=== PATIENT | male | born 2005 | race Caucasian/White ===

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

== ENCOUNTER 2024-12-06 11:52 | Inpatient (IN) | payer MEDICAID, SELFPAY ==
--- NOTE | ~2024-12-06 | XR_ITS ---
EXAMINATION: XR ELBOW 3 VIEWS RIGHT HISTORY: pain/swelling COMPARISON: There are no prior studies available for comparison. FINDINGS: Three views of the right elbow are submitted. Osseous mineralization is normal. There is no fracture or dislocation. The joint spaces are preserved. There is soft tissue swelling. XR/XR elbow RT min 3V IMPRESSION: Soft tissue swelling. No osseous abnormality is identified. Electronically signed by: Renard Nix MD 12/06/2024 01:30 PM EDT
--- NOTE | ~2024-12-06 | US_ITS ---
EXAMINATION: US EXTREMITY, NONVASCULAR CLINICAL INFORMATION: Pain and redness in bicipital region right upper extremity, rule out biceps tendon rupture or tear. COMPARISON: None available. TECHNIQUE: Grayscale and color Doppler ultrasound imaging of the right bicep region was performed in the region of soft tissue redness and swelling. FINDINGS: The bicipital tendon, either normal or abnormal, could not be visualized by the technologist. In the region of the distal biceps, there is subcutaneous soft tissue edema. No mass, abnormal lymph nodes, or organized fluid collection identified. US/US Extremity Nonvas Limited RT IMPRESSION: 1. The bicipital tendon, either normal or abnormal, could not be visualized. 2. Subcutaneous edema in the region of swelling over the right bicep. No mass, abnormal lymph nodes, or organized fluid collection identified. 3. If there is concern for bicipital rupture, MRI recommended. Electronically signed by: Leonel Knapp MD 12/06/2024 03:48 PM EDT
[2024-12-06 12:23] VITALS: BP 127/76; PULSE 73; RESP 18; TEMP 36.7; O2SAT 99; BMI 24.2
--- NOTE | 2024-12-06 12:23 | ED_ITS ---
HPI - Extremity Injury (Upper) General Chief Complaint: Extremity Injury, Upper Stated Complaint: R Arm- Pain, Redness, Can't Bend Time Seen by Provider: 12/06/24 13:57 Source: patient and family (mother) Mode of arrival: ambulatory Limitations: no limitations History of Present Illness ED Provider: Paula Bridges PA-C HPI narrative: 19 y.o male with no past medical pain presents to the ED with a chief complaint of redness and pain along the flexor surface of the right forearm and bicep area. The patient reports that he went to the gym for the first time yesterday and did many arm exercises. He denies any pop or trauma to the arm at the gym or after. Last night he saw some redness near his lower anterior biceps area, then it was much larger this morning when he woke up. He reports pain and inability to flex and extend his arm. Patient reports taking tylenol with minimal help. Denies contact with new clothing, bedding, or any lotions and topical washes. Denies being outside or having any insect or animal bite recently. Denies fever, chills, or night sweats. Denies headache, vision changes, ear or mouth changes. Denies chest pain, dizziness, shortness of breath, abdominal pain, or lower extremity and left arm pain. MD complaint: injury to: right (flexor surface ), elbow and forearm Onset (ago): hour(s) Other injuries: none Place: other (gym) Severity: moderate Relieving factors: rest Exacerbating factors: movement of extremity Context: other (first day at gym with arm exercises) Associated symptoms: denies other symptoms Treatments prior to arrival: other (tylenol) Related Data Home Medications ?Medication ?Instructions ?Recorded ?Confirmed albuterol sulfate 90 mcg/actuation 2 - 4 puff inhalation Q4H PRN 12/06/24 12/06/24 aerosol inhaler (Ventolin HFA) Shortness Of Breath Or Wheezing cetirizine 10 mg tablet (Zyrtec) 10 mg PO DAILY PRN Allergy Symptoms 12/06/24 12/06/24 epinephrine 0.3 mg/0.3 mL 0.3 ml IM DIRECTED PRN Allergic 12/06/24 12/06/24 injection, auto-injector Reaction Allergies Allergy/AdvReac Type Severity Reaction Status Date / Time seafood Allergy Intermediate Hives Verified 12/06/24 12:31 carrot Allergy Unknown Verified 12/07/24 12:44 green michaels Allergy Unknown Verified 12/07/24 12:45 SEAFOOD Allergy Unknown HIVES Uncoded 09/18/24 14:47 Review of Systems 2 Review of Systems: Yes all other systems are reviewed and are negative [facility] Past Medical History Medical History Mild intermittent asthma Social History Social History Household Members: Family Housing: Apartment Do you presently have visiting nurse or other home services: No Patient Tobacco Use Status: Never used Tobacco Smoked in Last 30 Days: No Use of substances other than those prescribed or required for medical reasons: No Currently Displaying Signs/Symptoms of Drug Intoxication Withdrawal: No Have you been hit, kicked, punched, or otherwise hurt by someone within the past year? If so, by whom?: No Do you feel safe in your current relationship?: No Current Relationship Is there a partner from a previous relationship who is making you feel unsafe now?: No Are you made to feel afraid or neglected: No Advance Directives: No Advance Directives Information Provided: Yes Do you have a plan to hurt others: No Plan Nutrition Risks: No Nutritional Risk Physical Exam 2 Vital Signs: Vital Signs: Last Vital Signs Temp 98.1 F 12/07/24 07:52 Pulse 65 12/07/24 07:52 Resp 16 12/07/24 07:52 BP 121/58 L 12/07/24 07:52 Pulse Ox 97 12/07/24 07:52 O2 Del Method Room Air 12/07/24 07:52 BMI result Body Mass Index 24.2 Appearance: Alert. Oriented X3. No acute distress. Head: normocephalic, atraumatic. Eyes: Pupils equal, round and reactive to light. ENT: Pharynx normal. No tonsillar swelling or exudate. Neck: Normal inspection. Neck supple. CVS: Normal heart rate and rhythm. Pulses normal. Respiratory: No respiratory distress. Breath sounds normal. Abdomen: Soft and nontender. +BS x4 Skin: Skin warm and dry. Normal skin color. Normal skin turgor. No rashes. Warmth and erythema along the right flexor surface- lower biceps and upper forearm region. Extremities: No lower extremity edema. No joint swelling. Swelling along the right flexor surface- lower biceps and upper forearm region. Neuro/psych: Oriented X 3. No motor deficit. No sensory deficit. CN II-XII intact. Normal speech and cognition. Extrem: Elbow/forearm/wrist images: 1. Erythema and swelling Right lower extremity: abnormal to inspection and ROM limited (inability to flex and extend right arm ) Course Course Course Narrative: This is a Rapid Medical Exam performed in triage by Crystal Freitas PA-C. Full HPI, ROS and PE to be performed by primary ED provider. 19 yo M presenting to the ED c/o RUE pain s/p doing bicep curls in the gym yesterday. PE: R elbow with erythema swelling & ttp to mid humerus. NV intact distally. limited full flexion & extension Plan: XR & US Medications Administered Generic Name Dose Route Start Last Admin Trade Name Freq PRN Reason Stop Dose Admin Doxycycline Hyclate 100 mg/ 250 mls @ 166.67 mls/hr 12/06/24 19:00 12/07/24 07:45 Sodium Chloride IV Infused Q12H SHAJI Infusion Lactated Ringer's 1,000 mls @ 200 mls/hr 12/06/24 18:45 12/07/24 12:42 Lr IVCONT 200 mls/hr .Q5H SHAJI Administration Sodium Chloride 3 ml 12/07/24 00:00 12/07/24 07:44 0.9 % Sodium Chloride Flush 3 Ml Syringe IVFLUSH 3 ml QSHIFT SHAJI Administration Discontinued Medications Generic Name Dose Route Start Last Admin Trade Name Freq PRN Reason Stop Dose Admin Ceftriaxone Sodium 1 gm 12/06/24 18:02 12/06/24 18:37 Ceftriaxone Sodium 1 Gm Vial IVPUSH 12/06/24 18:03 1 gm ONCE ONE Administration Lactated Ringer's 1,000 mls @ 999 mls/hr 12/06/24 15:00 12/06/24 16:18 Lr IV 12/06/24 16:00 Infused .Q1H1M SHAJI Infusion Lactated Ringer's 1,000 mls @ 999 mls/hr 12/06/24 16:00 12/06/24 17:34 Lr IV 12/06/24 17:00 Infused .Q1H1M SHAJI Infusion Lactated Ringer's 1,000 mls @ 999 mls/hr 12/06/24 18:15 12/06/24 20:24 Lr IV 12/06/24 19:15 Infused .Q1H1M SHAJI Infusion Medical Decision Making Medical Decision Making [facility] Narrative: 19 y.o male with no past medical pain presents to the ED with a chief complaint of redness and pain along the flexor surface of the right forearm and bicep area. Differential diagnosis included but is not limited to biceps tendon strain, biceps tendon rupture, cellulitis, rhabdomyolysis, lyme disease, and pyomyositis. On physical exam there was no ecchymosis visualized and the elbow x-ray read an impression of soft tissue swelling with no osseous abnormality identified - no avulsion fracture present which lessens the probability of a biceps tendon injury. Ultrasound was unable to visualize the bicipital tendon and showed subcutaneous edema in the swelling over the right bicep, with no masses, lymph node abnormalities, or organized fluid collections - along with no elevated WBC lowers suspicion for pyomyositis. Tick borne illness panel is pending, low suspicion and giving doxycycline for possible cellulitis anyway. The erythema and warmth along the flexor surface of the proximal bicep and distal forearm aid in the diagnosis of a cellulitis. AST and ALT are elevated at 55 and 42 along with the total CK levels of 2382, indicating an occurence of rhabdomyolysis. Patient was given 2L of LR and sent home with a 7 day course of doxycycline/keflex for empiric treatment of possible cellulitis. deeper infection less likely with reassuring U/S, no leukocytosis and unremarkabel CRP, ESR. 18:07 - CPK trended upward to 2451 despite 2L IVF. 3rd liter ordered along with empiric abx. no evidence of compartment syndrome on re-evaluation, pain and swelling are stable/the same per patient. hospitlaist TT for admission. patient and family updated on plan. Differential Diagnosis Differential Diagnoses: The differential diagnosis associated with the presentation includes Differential diagnosis included but is not limited to biceps tendon strain, biceps tendon rupture, cellulitis, rhabdomyolysis, pyomyositis, myositis, compartment syndrome Admission/Observation Consideration of admission/observation: Escalation of care including admission/observation considered Consult Healthcare Provider Management of the patient was discussed with: Hospitalist Lab Data [facility] Lab Attestation statement: I reviewed the patient's lab results. see above 12/07/24 06:38 12/07/24 06:38 Labs: Lab Results 12/06/24 12/06/24 12/06/24 Range/Units 14:28 16:20 17:39 WBC 10.3 (4.8-10.8) X10*3/uL RBC 5.60 (4.60-5.80) X10*6/uL Hgb 17.4 (14.0-18.0) g/dl Hct 49.0 (42.0-52.0) % MCV 87.5 (80.0-98.0) fL MCH 31.1 (27.0-33.0) pg MCHC 35.5 (31.0-36.0) g/dl RDW 13.3 (11.0-16.0) % Plt Count 247 (160-400) X10*3/uL MPV 8.3 L (9.4-12.4) fL Immature Gran % (Auto) 1.1 H (0.0-0.4) % Neut % (Auto) 64.9 (45-73) % Lymph % (Auto) 27.0 (20-40) % [place] % (Auto) 6.2 (2-11) % Eos % (Auto) 0.5 (0-4) % Baso % (Auto) 0.3 (0-2) % Lymph # (Auto) 2.8 (1.2-4.9) X10*3/uL [place] # (Auto) 0.6 (0.1-1.2) X10*3/uL Eos # (Auto) 0.1 (0.0-0.4) X10*3/uL Baso # (Auto) 0.0 (0.0-0.2) X10*3/uL Abs Immat Gran (auto) 0.11 H (0.00-0.03) X10*3/uL Absolute Neuts (auto) 6.7 (2.0-8.3) x10*3/uL Absolute Nucleated RBC 0.000 (0.0-0.012) X10*3/uL Nucleated RBC % (auto) 0.0 (0.0-0.2) /100WBC ESR 2 (0-15) MM/HR Sodium 140 (135-145) mmol/L Potassium 4.3 (3.3-5.1) mmol/L Chloride 104 (96-108) mmol/L Carbon Dioxide 31 H (22-29) mmol/L Anion Gap 9 L (12-20) BUN 14 (9-16) mg/dL Creatinine 0.64 (0.5-1.4) mg/dL Estim Creat Clear Calc 182.5 Estimated GFR > 60 Random Glucose 92 (60-115) mg/dL Calcium 9.2 (8.4-10.2) mg/dL Magnesium 2.0 (1.6-2.6) mg/dL Total Bilirubin 0.7 (0.0-1.0) mg/dL Direct Bilirubin 0.3 (0.0-0.5) mg/dL AST 55 H (5-37) U/L ALT 42 H (0-40) U/L Alkaline Phosphatase 81 (39-117) U/L Total Creatine Kinase 2382 H 2451 H (38-174) U/L C-Reactive Protein 0.55 H (< or = 0.50) mg/dL Total Protein 7.3 (6.5-8.0) g/dL Albumin 4.6 (3.5-5.0) g/dL Urine Color Yellow Urine Appearance Clear Urine pH 6.5 (5.0-9.0) Ur Specific [place] 1.015 (1.005-1.025) Urine Protein Negative (Neg-Trace) mg/dL Urine Glucose (UA) Negative (Negative) mg/dL Urine Ketones Negative (Negative) mg/dL Urine Blood Negative (Negative) Urine Nitrite Negative (Negative) Ur Leukocyte Esterase Negative (Negative) Independent Interpretation I performed an independent interpretation of an: Plain X-Ray and Ultrasound Interpretation: Ultrasound without fluid collection or abscess X-ray without acute fracture there is soft tissue swelling present Radiology Impression Discussion of test interpretation with radiology: I have reviewed the radiologist's reading. Independent Historian Clinical information obtained from an independent historian. History obtained from or confirmed by: Parent (mother) External Record Review External record reviewed: Prior outpatient labs Tests considered The following testing was considered but not selected: MRI of the biceps was considered, not emergently required today Prescription Management I considered prescription management with: Other (Lactated ringers ) Critical Care Time Critical Care Time Critical Care Time: Yes Total Critical Care Time: 33 Attestation: I have personally provided critical care time exclusive of time spent on separately billable procedures. Time includes review of lab data, radiology results, bedside re-evaluation after IV fluid boluses, re-evaluation of CMS status, and monitoring for potential decompensation. Intervention performed as documented. Discharge Plan Discharge Clinical Impression: Rhabdomyolysis Qualifiers: Rhabdomyolysis type: traumatic Encounter type: initial encounter Qualified Code(s): T79.6XXA - Traumatic ischemia of muscle, initial encounter Cellulitis Qualifiers: Site of cellulitis: extremity Site of cellulitis of extremity: upper extremity Laterality: right Qualified Code(s): L03.113 - Cellulitis of right upper limb Patient Disposition: Admitted As Inpatient Interventions: Admission Worksheet (ED) Last Done: 12/06/24 19:21 Discharge Date/Time: 12/06/24 20:42
[2024-12-06 13:42] VITALS: BP 127/76; PULSE 73; RESP 18; TEMP 36.7; O2SAT 99
--- NOTE | 2024-12-06 13:48 | PC.NURSE ---
Patient presents to Ed c/o right arm injury. Patient was working out at gym yesterday doing curls. Denies injury, Woke up this morning right inner elbow was red, swollen, and painful. +CMS limited ROM in right arm. pain rated 10/10. Xray of elbow performed, no fracture or dislocation noted but tissue swelling seen. Red area outlined. Denies SOB. Mother at bedside. Plan of care on going.
[2024-12-06 14:32] LABS: MANUAL DIFF FLAG NO
[2024-12-06 14:34] LABS: Basophils Percent Auto 0.3 % (0-2); Eosinophils Absolute Auto 0.1 X10*3/uL (0.0-0.4); Eosinophils Percent Auto 0.5 % (0-4); Hemoglobin 17.4 g/dl (14.0-18.0); Imm Gran Abs Auto 0.11 X10*3/uL (0.00-0.03); Imm Gran Pct Auto 1.1 % (0.0-0.4); Lymphocytes Absolute Auto 2.8 X10*3/uL (1.2-4.9); Mean Corpuscular HGB Conc 35.5 g/dl (31.0-36.0); Mean Corpuscular Hemoglobin 31.1 pg (27.0-33.0); Mean Corpuscular Volume 87.5 fL (80.0-98.0); Mean Platelet Volume 8.3 fL (9.4-12.4); Monocytes Absolute Auto 0.6 X10*3/uL (0.1-1.2); Monocytes Percent Auto 6.2 % (2-11); Neutrophils Absolute Auto 6.7 x10*3/uL (2.0-8.3); Neutrophils Percent Auto 64.9 % (45-73); Platelet Count 247 X10*3/uL (160-400); Red Cell Distribution Width 13.3 % (11.0-16.0); White Blood Count 10.3 X10*3/uL (4.8-10.8)
--- OUTSIDE RECORDS SUMMARY | 2024-12-06 14:35 | XMS_ITS | Encounter Summary ---
Author Organization [employer] Address [address] [place] [address] [address] [place] [address] Care Team Providers Care Medical Office Receptionist Assistant Name Role Phone Moni Cervantes MD Primary Care Provider [phone] Reason for Visit * Reason Comments Med Refill Encounter Details Date Type Department Care Team ([facility] Contact Info) Description 04/24/2024 Refill [facility] [address] [place], [place] [phone] Moni Cervantes MD [address] [place], [place] [phone] Social History Tobacco Use Types Packs/Day Years Used Date Smoking Tobacco: Never Smokeless Tobacco: Never Alcohol Use Standard Drinks/Week Comments Never 0 (1 standard drink = 0.6 oz pur e alcohol) Depression Answer Date Recorded Patient Health Questionnaire-9 Score 0 04/21/2024 Patient Health Questionnaire-9 Score 0 04/21/2024 Last PHQ-9: Questionnaire Data Not on file 1 Housing Stability Answer Date Recorded What is your housing situation today? I have ben márquez 04/21/[address] you li ve. Do you have problems with any of the following? None of the above 04/21/2024 Food Insecurity Answer Date Recorded Within the past 12 months, y ou worried that your food would run out before you got money to buy more: Never True 04/21/2024 Within the past 12 months,th e food you bought just didn't last and you didn't have enough money to get more: Never True 10/2023 Transportation Answer Date Recorded In the past 12 months, has l ack of transportation kept you from medical appts, meetings, work or from getting things needed for daily living? No 04/21/2024 Utilities Answer Date Recorded In the past 12 months, has t he electric, gas, oil or water company threatened to shut off services in your home? No 04/21/2024 Depression Answer Date Recorded Patient Health Questionnaire-2 Score 0 04/21/2024 Internet Access Answer Date Recorded Internet Access Q1 Yes 04/21/2024 Internet Access Q2 Not on file 04/21/2024 Sex and Gender Information Value Date Recorded Sex Assigned at Male 05/18/2022 10:20 AM EDT Legal Sex Male 10:20 AM EDT Gender Identity Male 05/18/2022 10:20 AM EDT Sexual Orientation Don't know 05/18/2022 10 :20 AM EDT documented as of this encounter Plan of Treatment Not on file documented as of this encounter Visit Diagnoses Not on filedocumented in this encounter Additional Health Concerns Assessment Noted Time PHQ-9 Depression Total Score: 0 04/21/20 1:45 PM EDT documented as of this encounter Care Teams Medical Office Receptionist Assistant Relationship Specialty Start Date End Date Moni Cervantes MD [address] [place] [id number] PCP - General Family Medicine 04/12/24 mAina Maradiaga Body Press OperatorSample Maker Original 12/23/23 documented as of this encounter
--- OUTSIDE RECORDS SUMMARY | 2024-12-06 14:35 | XMS_ITS | Clinical Summary ---
Author Organization [employer] Address [address] [place] [address] Care Team Providers Care Business Process Engineer Name Role Phone Moni Cervantes MD Primary Care Provider [phone] Allergies Active Allergy Reactions Criticality Noted Date Comments Cat Dander 01/02/2022 Other reaction(s): Unknown Molds & Smuts 01/12/2020 Fish Oil 01/12/2020 Shellfish Allergy Swelling High 10/08/2020 Tongue tongue Shellfish-Derived Products 0 Medications melatonin 5 MG tablet TAKE 1 TO 2 TABLETS BY MOUTH EVERY DAY AT BEDTIME NEEDED FOR for SLEEP 60 tablet 2 07/09/2023 Active albuterol (Ventolin HFA) 108 (90 Base) MCG/ACT inhaler INHALE 2-4 PUFFS EVERY 4 HOURS NEEDED 36 g 11 04/21/2024 Active cetirizine (ZyrTEC) 10 MG tablet Take 1 tablet (10 mg) by mouth Once per day. 90 tablet 3 04/21/2024 Active EPINEPHrine (Epipen) 0.3 MG/0.3ML injection syringe Use for severe allergic reaction 2 each 1 04/21/2024 Active Active Problems Problem Noted Date Diagnosed Date Eczema 08/26/2022 Tooth impaction 12/17/2021 Overview (04/19/2024): Added automatically from request for surgery [id number] Mild persistent asthma 07/03/2015 Allergic rhinitis 01/24/2013 Developmental delay 04/25/2012 Encounters Date Type Department Care Team Description 09/29/2024 Population Health Risk Score [facility] ([facility]) [address] [address] Provider, Population Health Generic from Last 3 Months Immunizations Immunization Administration Dates Next Due DTaP 12/08/2007, 5,06/25/2004,03/19,2003 HPV 9-Valent 07/14/2016,07/03/2015 Hep A, ped/adol, 2 dose 04/22/2010,12/08/2007 Hep B, Adolescent or Pediatric 04/30/2004,2003,2003 Hib (HbOC) 02/04/2005,03/19/2004,2003 IPV 12/08/2007, 4,03/19/2004,12/25 Influenza injectable quadriv alent preservative free 05/31/2019,05/05/2018,04/15/2017,04/07,07/03/2015,04/19/2014 Influenza, IIV3, injectable 04/22/2010, 4 Influenza, Split (incl. amina fied surface antigen) 04/25/2012 MMR 12/08/2007,12/24/2004 Meningococcal MCV4P [id number] 07/29/2020,07/03/20 15 Pfizer Covid-19 Vaccine 12+ 04/21/2024 Pneumococcal Conjugate PCV 7 02/04/2005, 06/25/2004,03/19/2004,12/25 Tdap 07/03/2015 Varicella 01/15/2012,12/08/2007 Family History Medical History Relation Name Comments Colon cancer Maternal Grandmother Diabetes type II Mother's Sister Relation Name Status Comments Maternal Grandmother Mother's Sister Alive Social History Tobacco Use Types Packs/Day Years Used Date Smoking Tobacco: Never Smokeless Tobacco: Never Tobacco Cessation:Counseling Given: Not Answered Alcohol Use Standard Drinks/Week Comments Never 0 (1 standard drink = 0.6 oz pur e alcohol) Depression Answer Date Recorded Patient Health Questionnaire-9 Score 0 04/21/2024 Patient Health Questionnaire-9 Score 0 04/21/2024 Last PHQ-9: Questionnaire Data Not on file 1 Housing Stability Answer Date Recorded What is your housing situation today? I have ben sing 04/21/[address] you li [...] Don't know 05/18/2022 10 :20 AM EDT Last Filed Vital Signs Vital Sign Reading Time Taken Comments Blood Pressure 122/74 04/21/2024 1:44 PM EDT Pulse 77 04/21/2024 1:44 PM EDT Temperature 36.5 ??C (97.7 ??F) 04/21/2024 1:44 PM ED T Respiratory Rate 20 04/21/2024 1:44 PM EDT Oxygen Saturation 98% 04/21/2024 1:44 PM EDT Inhaled Oxygen Concentration - - Weight 75.2 kg (165 lb 12.8 oz) 04/21/2024 1:44 PM EDT Height 175.3 cm (5' 9 ) 04/21/2024 1:44 PM EDT Body Mass Index 24.48 04/21/2024 1:44 PM EDT Plan of Treatment Health Maintenance Due Date Last Done Comments Chlamydia and Gonorrhea Screening 2003 HIV Screening 2003 Disability Screening 2003 Family Planning (PISQ) 10/18/2018 Meningococcal B Vaccine (1 of 2 - Standard) 2019 Hepatitis C Screening 10/18/2021 Pneumococcal Vaccine: Pediatrics (0 to 5 Years) and At-Risk Patients (6 to 49) Years) (1 of 2 - PCV) 10/18/2022 02/04/2005, 06/25/2004, 03/19/2004, Additional history exists Influenza Vaccine (#1) 2024 9, 05/05/2018, 04/15/2017, Additional history exists Alcohol/Substance Use Screening 04/21/2025 04/21/2024 Depression Screening 04/21/2025 04/21/2024, 04/21/20 24 SDOH Screening 04/21/2025 04/21/2024 Tobacco Screening 04/24/2025 04/24/2024 DTaP/Tdap/Td Vaccines (7 - Td or Tdap) 07/03/2025 07/03/2015, 12/08/2007, 02/04/2005, Additional history exists Zoster Vaccines (1 of 2) 10/18/2053 RSV Patients and Patients Aged 60 years or older (1 - 1-dose 75+ series) 10/18/2078 Hepatitis B Vaccines Completed 04/30/2004, 2003, 2003 HIB Vaccines Completed 02/04/2005, 07/2003, 2003 IPV Vaccines Completed 12/08/2007, 02/2004, 03/19/2004, Additional history exists Hepatitis A Vaccines Completed 04/22/2010, 12/08/19 08 HPV Vaccines Completed 07/14/2016, 07/03/2015 Meningococcal Vaccine Completed 07/29/2020, 015 COVID-19 Vaccine Completed 04/21/2024 RSV under 20 months Aged Out No longe r eligible based on patient's age to complete this topic Rotavirus Vaccines Aged Out No longer eligible based on patient's age to complete this topic Insurance [facility] C3 * Guarantor: Tl Juares Account Type Relation to Patient Date of Phone Billing Address Personal/Family Self [address] [phone] * Guarantor: Tl Juares Account Type Relation to Patient Date of Phone Billing Address Personal/Family Self [address] [address] * Guarantor: Tl Juares Account Type Relation to Patient Date of Phone Billing Address Personal/Family Self [address] [address] Care Teams Business Process Engineer Relationship Specialty Start Date End Date Moni Cervantes MD [address] [place] [address] PCP - General Family Medicine 04/12/24 Amina Maradiaga Pharmacy Technician [employer] Line Cook 12/23/23
[2024-12-06 14:52] LABS: Alanine Aminotransferase 42 U/L (0-40); Albumin Level 4.6 g/dL (3.5-5.0); Alkaline Phosphatase 81 U/L (39-117); Anion Gap 9 (12-20); Aspartate Amino Transferase 55 U/L (5-37); Bilirubin Direct 0.3 mg/dL (0.0-0.5); Bilirubin Total 0.7 mg/dL (0.0-1.0); Blood Urea Nitrogen 14 mg/dL (9-16); C Reactive Protein 0.55 mg/dL (< or = 0.50); Calcium 9.2 mg/dL (8.4-10.2); Carbon Dioxide 31 mmol/L (22-29); Chloride 104 mmol/L (96-108); Creatinine Clr Calc Pharmacy 182.5; Estimated Glomerular Filt Rate > 60; Glucose Random 92 mg/dL (60-115); Potassium 4.3 mmol/L (3.3-5.1); Sodium 140 mmol/L (135-145); Total Protein 7.3 g/dL (6.5-8.0)
[2024-12-06] MEDS: Lactated Ringers 1,000 ML 999 ML IV ×3 (15:05→18:38)
[2024-12-06 15:26] LABS: Erythrocyte Sedimentation Rate 2 MM/HR (0-15)
[2024-12-06 16:27] LABS: Appearance Urine Clear; Color Urine Yellow; Glucose Urine UA Negative (Negative); Leukocyte Esterase Urine Negative (Negative); Nitrite Urine Negative (Negative); PH 6.5 (5.0-9.0); Specific Gravity - Urine 1.015 (1.005-1.025); Urine Blood Negative (Negative); Urine Ketones Negative (Negative); Urine Protein Negative (Neg-Trace)
--- NOTE | 2024-12-06 17:37 | PC.NURSE ---
IV 20G placed in left AC, patient received 2L LR. Repeat labs collected/sent, results pending
--- NOTE | 2024-12-06 17:53 | PC.NURSE ---
Patient had extremity ultrasound performed. Bicipital tendon couldnt be visualized. Subcutaneous region swelling over right bicep, MRI recommendation if concern for bicipital tear. Provider in to see patient
[2024-12-06 18:07] VITALS: BP 117/57; PULSE 67; RESP 14; TEMP 36.8; O2SAT 100
--- NOTE | 2024-12-06 18:24 | PM.IMHP ---
History of Present Illness Date of Service: 12/06/24 Chief Complaint: Right arm swelling and pain 19 year male with mild intermittent asthma lifted weight for first time yesterday, and today noted swelling and redness in the right arm with pain. Xray show soft tissues swelling, US no dvt. CPK 2382, repeat 2451, the arm has normal color and normal distal pulses. Review of Systems Review of Systems: Gen: no fever Resp: no sob, no cough CV: no chest, no TREJO, no leg edema GI: No n/v, no abd pain MS: pain in the right arm.swelling and redness Neuro: No confusion [facility] Medical History Mild intermittent asthma Social History Household Members: Family Housing: Apartment Do you presently have visiting nurse or other home services: No Patient Tobacco Use Status: Never used Tobacco Smoked in Last 30 Days: No Use of substances other than those prescribed or required for medical reasons: No Currently Displaying Signs/Symptoms of Drug Intoxication Withdrawal: No Have you been hit, kicked, punched, or otherwise hurt by someone within the past year? If so, by whom?: No Do you feel safe in your current relationship?: No Current Relationship Is there a partner from a previous relationship who is making you feel unsafe now?: No Are you made to feel afraid or neglected: No Advance Directives: No Advance Directives Information Provided: Yes Do you have a plan to hurt others: No Plan Nutrition Risks: No Nutritional Risk Meds Allergies Allergy/AdvReac Type Severity Reaction Status Date / Time seafood Allergy Intermediate Hives Verified 12/06/24 12:31 SEAFOOD Allergy Unknown HIVES Uncoded 09/18/24 14:47 Active Medications: Current Medications Lactated Ringer's (Lr) 1,000 mls @ 999 mls/hr IV .Q1H1M SHAJI Stop: 12/06/24 19:15 Home Medications ?Medication ?Instructions ?Recorded ?Confirmed ?Last Taken ?Type albuterol sulfate 90 mcg/actuation 2 - 4 puff inhalation Q4H PRN 12/06/24 12/06/24 Unknown History aerosol inhaler (Ventolin HFA) Shortness Of Breath Or Wheezing cetirizine 10 mg tablet (Zyrtec) 10 mg PO DAILY PRN Allergy Symptoms 12/06/24 12/06/24 Unknown History epinephrine 0.3 mg/0.3 mL 0.3 ml IM DIRECTED PRN Allergic 12/06/24 12/06/24 Unknown History injection, auto-injector Reaction Physical Exam Vital Signs and Narrative: Vital Signs: Last Vital Signs Temp 98.3 F 12/06/24 18:07 Pulse 67 12/06/24 18:07 Resp 14 12/06/24 18:07 BP 117/57 L 12/06/24 18:07 Pulse Ox 100 12/06/24 18:07 O2 Del Method Room Air 12/06/24 18:07 BMI result Body Mass Index 24.2 Const: Other: General: AO X 3, no acute distress Resp: CTA bilateral CVS: S1,S2,RRR GI: +BS, NT, no distention Skin: No rash, redness and swelling of right arm Neuro: motor grossly intact Psych: appropriate affect Results Labs 12/07/24 06:38 12/07/24 06:38 Labs: Laboratory Results - last 24 hr 12/06/24 12/06/24 12/06/24 14:28 16:20 17:39 MCV 87.5 MCH 31.1 MCHC 35.5 RDW 13.3 Plt Count 247 MPV 8.3 L Immature Gran % (Auto) 1.1 H Neut % (Auto) 64.9 Lymph % (Auto) 27.0 [place] % (Auto) 6.2 Eos % (Auto) 0.5 Baso % (Auto) 0.3 Lymph # (Auto) 2.8 [place] # (Auto) 0.6 Eos # (Auto) 0.1 Baso # (Auto) 0.0 Abs Immat Gran (auto) 0.11 H Absolute Neuts (auto) 6.7 Absolute Nucleated RBC 0.000 Nucleated RBC % (auto) 0.0 ESR 2 Anion Gap 9 L Estim Creat Clear Calc 182.5 Estimated GFR > 60 Random Glucose 92 Calcium 9.2 Magnesium 2.0 Total Bilirubin 0.7 Direct Bilirubin 0.3 AST 55 H ALT 42 H Alkaline Phosphatase 81 Total Creatine Kinase 2382 H 2451 H C-Reactive Protein 0.55 H Total Protein 7.3 Albumin 4.6 Urine Color Yellow Urine Appearance Clear Urine pH 6.5 Ur Specific [place] 1.015 Urine Protein Negative Urine Glucose (UA) Negative Urine Ketones Negative Urine Blood Negative Urine Nitrite Negative Ur Leukocyte Esterase Negative Imaging Radiologist's Impressions: Impressions Elbow X-Ray 12/06/24 12:26 IMPRESSION: Soft tissue swelling. No osseous abnormality is identified. Electronically signed by: Renard Nix MD 12/06/2024 01:30 PM EDT RP Extremity Ultrasound 12/06/24 15:10 IMPRESSION: 1. The bicipital tendon, either normal or abnormal, could not be visualized. 2. Subcutaneous edema in the region of swelling over the right bicep. No mass, abnormal lymph nodes, or organized fluid collection identified. 3. If there is concern for bicipital rupture, MRI recommended. Electronically signed by: Leonel Knapp MD 12/06/2024 03:48 PM EDT RP Assessment and Plan (1) Rhabdomyolysis: Qualifiers: Encounter type: initial encounter Rhabdomyolysis type: traumatic Qualified Code(s): T79.6XXA - Traumatic ischemia of muscle, initial encounter Status: Acute (2) Cellulitis: Qualifiers: Laterality: right Site of cellulitis: extremity Site of cellulitis of extremity: upper extremity Qualified Code(s): L03.113 - Cellulitis of right upper limb Status: Acute Plan 19/m with right arm swelling, cellulitis following weight lift, has mild rhabdomylosis Cellulitis right arm, rapidly spreadding Ceftriaxone + Doxy Monitor for compartmental syndrome, presently none Rhabdomylosis, cpk trending up IVF and monitor cpk dvt prophylaxis: low risk full code plan discussed with pt and mother Quality Stroke Does the patient have a stroke diagnosis?: No VTE Prior VTE?: No VTE Risk Level:: Medical - low VTE Device Contraindication: Treatment Not Indicated VTE Drug Contraindication: Treatment Not Indicated
[2024-12-06] MEDS: cefTRIAXone sodium 1 GM VIAL IVPUSH (18:37)
[2024-12-06] MEDS: Doxycycline Hyclate 100 MG in 0.9 % Sodium Chloride 250 ML 166.67 MG IV (18:37)
--- NOTE | 2024-12-06 18:49 | PC.NURSE ---
CPK trending up, Ceftriaonxe given, currently running 1L LR and doxy. Calin wrap in place on right arm. Blood cultures collected/sent to lab
[2024-12-06 18:54] LABS: Lactic Acid 1.3 mmol/L (0.5-2.0)
--- NOTE | 2024-12-06 19:11 | PHA.MEDREC ---
Addendum entered by Rosa Allen RP 12/06/24 19:17: reviewed by [facility]. Original Note: Pharmacy Consult ? Medication Reconciliation Pharmacy has completed the medication reconciliation. spoke to patients mother at bedside to confirm med list.
[2024-12-06] MEDS: Lactated Ringers 1,000 ML 200 ML IVCONT (20:20)
--- NOTE | 2024-12-06 20:40 | PC.NURSE ---
Mother request due to son per mother being developmentally delayed that if any healthcare staff talk to pt and he does not understand to call mom emergency contact.
[2024-12-06 20:49] VITALS: BMI 23.9
[2024-12-06 20:51] VITALS: BP 135/69; PULSE 67; RESP 18; TEMP 36.6; O2SAT 98
[2024-12-07] MEDS: Lactated Ringers 1,000 ML 200 ML IVCONT ×4 (01:04→17:51)
[2024-12-07 03:27] VITALS: BP 120/58; PULSE 82; RESP 18; TEMP 36.6; O2SAT 99
--- NOTE | 2024-12-07 05:09 | HO.SKINPHOTO ---
Location: Right arm Category: Cellulitis Stage: Length: Location: Category: Stage: Length: Width: Depth: cm
[2024-12-07] MEDS: Doxycycline Hyclate 100 MG in 0.9 % Sodium Chloride 250 ML 166.67 MG IV ×2 (06:11→17:51)
[2024-12-07 06:59] LABS: Hematocrit 48.4 % (42.0-52.0); Hemoglobin 16.3 g/dl (14.0-18.0); Mean Corpuscular HGB Conc 33.7 g/dl (31.0-36.0); Mean Corpuscular Volume 89.1 fL (80.0-98.0); Mean Platelet Volume 8.7 fL (9.4-12.4); Platelet Count 231 X10*3/uL (160-400); Red Blood Count 5.43 X10*6/uL (4.60-5.80); Red Cell Distribution Width 13.3 % (11.0-16.0)
[2024-12-07 07:43] LABS: Anion Gap 13 (12-20); Blood Urea Nitrogen 11 mg/dL (9-16); Calcium 9.5 mg/dL (8.4-10.2); Carbon Dioxide 29 mmol/L (22-29); Chloride 105 mmol/L (96-108); Creatinine Clr Calc Pharmacy 179.7; Estimated Glomerular Filt Rate > 60; Glucose Random 94 mg/dL (60-115); Sodium 143 mmol/L (135-145)
[2024-12-07] MEDS: 0.9 % Sodium Chloride Flush 3 ML SYRINGE IVFLUSH (07:44)
[2024-12-07 07:52] VITALS: BP 121/58; PULSE 65; RESP 16; TEMP 36.7; O2SAT 97
--- NOTE | 2024-12-07 10:48 | HO.WOUND ---
Wound Consult: Initial 19yr old?male [place] [facility] [place] - See progress notes and H&P for detailed history.? Wound consult placed for Right Arm Cellulitis.? Patient agreeable to assessment and photo documentation.? Patient and his mother at bedside deny open wound - agreeable to assessment. Skin assessed and remains intact - no pigmentation changes noted at this time - observed skin pen marking but no appreciable color changes noted. He report this has improved / resolved since admission. There is a notable amount of swelling on the right elbow area no tenderness noted when assessed - will defer to medical provider there are no topical interventions that are needed at this time as tissue remains intact.
--- NOTE | 2024-12-07 11:24 | HO.PM.IMPN ---
Subjective Subjective Date of Service: 12/07/24 Interval History: 19 year male with mild intermittent asthma lifted weight for first time and noted swelling and redness in the right arm with pain. X-ray show soft tissues swelling, US no dvt, but subcutaneous edema. CPK 2382, repeat 2451, repeat 12/07 5268. Right arm with decreased redness and pain from yesterday. Review of Systems Lungs: denies SOB ?Heart: denies chest pain or palpitations ?Abdomen: denies nausea, vomiting, abdominal pain ?: denies pain with urination, blood in urine or dark urine ?Musculoskeletal: report right arm swelling and pain. Decreased redness reported since yesterday. ?Neuro: denies headache, weakness or dizziness Physical Exam Vital Signs: Vital Signs: Last Vital Signs Temp 98.1 F 12/07/24 07:52 Pulse 65 12/07/24 07:52 Resp 16 12/07/24 07:52 BP 121/58 L 12/07/24 07:52 Pulse Ox 97 12/07/24 07:52 O2 Del Method Room Air 12/07/24 07:52 BMI result Body Mass Index 23.9 General: AO X 3, no acute distress Resp: CTA bilateral CVS: S1,S2,RRR :clear yellow urine GI: +BS, NT, no distention Integumentary: mild redness and swelling to right arm Neuro: motor grossly intact Psych: appropriate affect Objective Data Active Medications Acetaminophen (Acetaminophen 325 Mg Tablet) 650 mg PO Q6H PRN PRN Reason: Pain, Mild 1-3,fever,headache Albuterol Sulfate (Albuterol Sulfate 90 Mcg 8 Gm Inhaler) 2 - 4 puff INHALE Q4H PRN PRN Reason: Shortness Of Breath Or Wheezing Calcium Carbonate (Calcium Carbonate 750 Mg Tab.Chew) 750 mg PO Q4H PRN PRN Reason: Heartburn Ceftriaxone Sodium (Ceftriaxone Sodium 1 Gm Vial) 1 gm IVPUSH Q24H [facility] Doxycycline Hyclate 100 mg/ (Sodium Chloride) 250 mls @ 166.67 mls/hr IV Q12H [facility] Last Infusion: 12/07/24 07:45 Dose: Infused Documented By: NICK Lactated Ringer's (Lr) 1,000 mls @ 200 mls/hr IVCONT .Q5H [facility] Last Admin: 12/07/24 11:16 Dose: Not Given Documented By: NICK Non-Admin Reason: IV Running Magnesium Hydroxide (Milk Of Magnesia 30 Ml Oral.Susp) 30 ml PO DAILY PRN PRN Reason: Constipation Melatonin (Melatonin 3 Mg Tablet) 6 mg PO BEDTIME PRN PRN Reason: Insomnia Sodium Chloride (0.9 % Sodium Chloride Flush 3 Ml Syringe) [facility] Last Admin: 12/07/24 07:44 Dose: 3 ml Documented By: NICK Labs 12/07/24 06:38 12/07/24 06:38 Labs: Laboratory Results - last 24 hr 12/06/24 12/06/24 12/06/24 14:28 16:20 17:39 MCV 87.5 MCH 31.1 MCHC 35.5 RDW 13.3 Plt Count 247 MPV 8.3 L Immature Gran % (Auto) 1.1 H Neut % (Auto) 64.9 Lymph % (Auto) 27.0 [place] % (Auto) 6.2 Eos % (Auto) 0.5 Baso % (Auto) 0.3 Lymph # (Auto) 2.8 [place] # (Auto) 0.6 Eos # (Auto) 0.1 Baso # (Auto) 0.0 Abs Immat Gran (auto) 0.11 H Absolute Neuts (auto) 6.7 Absolute Nucleated RBC 0.000 Nucleated RBC % (auto) 0.0 ESR 2 Anion Gap 9 L Estim Creat Clear Calc 182.5 Estimated GFR > 60 Random Glucose 92 Lactic Acid Calcium 9.2 Magnesium 2.0 Total Bilirubin 0.7 Direct Bilirubin 0.3 AST 55 H ALT 42 H Alkaline Phosphatase 81 Total Creatine Kinase 2382 H 2451 H C-Reactive Protein 0.55 H Total Protein 7.3 Albumin 4.6 Urine Color Yellow Urine Appearance Clear Urine pH 6.5 Ur Specific [place] 1.015 Urine Protein Negative Urine Glucose (UA) Negative Urine Ketones Negative Urine Blood Negative Urine Nitrite Negative Ur Leukocyte Esterase Negative 12/06/24 12/07/24 18:32 06:38 MCV 89.1 MCH 30.0 MCHC 33.7 RDW 13.3 Plt Count 231 MPV 8.7 L Immature Gran % (Auto) Neut % (Auto) Lymph % (Auto) [place] % (Auto) Eos % (Auto) Baso % (Auto) Lymph # (Auto) [place] # (Auto) Eos # (Auto) Baso # (Auto) Abs Immat Gran (auto) Absolute Neuts (auto) Absolute Nucleated RBC 0.000 Nucleated RBC % (auto) 0.0 ESR Anion Gap 13 Estim Creat Clear Calc 179.7 Estimated GFR > 60 Random Glucose 94 Lactic Acid 1.3 Calcium 9.5 Magnesium Total Bilirubin Direct Bilirubin AST ALT Alkaline Phosphatase Total Creatine Kinase 5269 H C-Reactive Protein Total Protein Albumin Urine Color Urine Appearance Urine pH Ur Specific [place] Urine Protein Urine Glucose (UA) Urine Ketones Urine Blood Urine Nitrite Ur Leukocyte Esterase Assessment and Plan (1) Cellulitis: Status: Acute (2) Rhabdomyolysis: Status: Acute Plan 19 y/o male with right arm swelling, cellulitis following weight lift, has mild rhabdomylosis. Right arm cellulitis appears to be improving with less redness noted and less defined lines of demarcation. Patient report improving pain since yesterday. No acute kidney injury noted. Cellulitis right arm improving IV Ceftriaxone + Doxy Monitor for compartmental syndrome, presently none Rhabdomylosis, cpk trending up 12/06- 2382, 12/06- 2451, 12/07- 6418 IVF and continue monitor cpk dvt prophylaxis: low risk full code plan discussed with pt Quality Stroke Does the patient have a stroke diagnosis?: No VTE Prior VTE?: No VTE Risk Level:: Medical - low VTE Device Contraindication: Treatment Not Indicated VTE Drug Contraindication: Treatment Not Indicated
[2024-12-07 14:59] VITALS: BP 136/62; PULSE 77; RESP 14; TEMP 36.7; O2SAT 98
--- NOTE | 2024-12-07 16:18 | MHC.CM.PN ---
CM MET WITH PT AND MOTHER AT BEDSIDE PT LIVES WITH HIS MOTHER AND SISTER AND IS INDEPENDENT WITH CARE HE HAS NO SERVICES AND NO DME HE IS NOT INTERESTED IN COMPLETING A HCP AT THIS TIME PCP AT [facility] DCP: HOME NO SERVICES VIA PRIVATE TRANSPORT
[2024-12-07] MEDS: cefTRIAXone sodium 1 GM VIAL IVPUSH (17:51)
[2024-12-07 18:37] LABS: Lyme Abs Screen <0.90 index
[2024-12-07 19:26] VITALS: BP 118/56; PULSE 83; RESP 18; TEMP 37.1; O2SAT 98
[2024-12-07 20:38] LABS: A. Phagocytphilium DNA,RT-PCR NOT DETECTED (NOT DETECTED); Babesia Microti DNA, RT-PCR NOT DETECTED (NOT DETECTED); Borrelia Miyamotoi,DNA RT-PCR NOT DETECTED (NOT DETECTED); E.Chaffeensis DNA RT-PCR NOT DETECTED (NOT DETECTED); Lyme(Borrelia ssp)DNA RT-PCR NOT DETECTED (NOT DETECTED)
[2024-12-08] MEDS: Lactated Ringers 1,000 ML 200 ML IVCONT ×5 (00:19→18:31)
[2024-12-08 03:20] VITALS: BP 112/58; PULSE 71; RESP 18; TEMP 36.6; O2SAT 98
[2024-12-08] MEDS: Doxycycline Hyclate 100 MG in 0.9 % Sodium Chloride 250 ML 166.67 MG IV ×2 (06:11→18:31)
[2024-12-08 07:11] VITALS: BP 117/57; PULSE 72; RESP 16; TEMP 36.5; O2SAT 98
[2024-12-08] MEDS: 0.9 % Sodium Chloride Flush 3 ML SYRINGE IVFLUSH (08:10)
[2024-12-08 08:12] LABS: Anion Gap 15 (12-20); Blood Urea Nitrogen 8 mg/dL (9-16); Calcium 8.7 mg/dL (8.4-10.2); Carbon Dioxide 26 mmol/L (22-29); Chloride 105 mmol/L (96-108); Creatinine Clr Calc Pharmacy 191.5; Estimated Glomerular Filt Rate > 60; Glucose Random 123 mg/dL (60-115); Potassium 4.1 mmol/L (3.3-5.1); Sodium 142 mmol/L (135-145)
--- NOTE | 2024-12-08 08:40 | P.CONNP_ITS ---
History of Present Illness Reason for Consult Consult date: 12/08/24 Chief Complaint Chief complaint: Rhabdo History of Present Illness Narrative: 19 y/o male with a medical history of asthma, presented 12/06 with right arm pain, swelling after lifting weights day prior. redness/swelling improving with abx, CK levels 2382 on arrival, trending up, 12/08 7079 Nephrology consulted for rhabdomyolysis. patient receiving IVF LR at 200mL/hr creatinine remains at baseline 12/08 is 0.61 patient reports his arm pain has improved, is mild to moderate when he lifts it, otherwise feels normal. denies chest pain, shortness of breath, urinary symptoms. denies other symptoms/concerns. reports he is not aware of family members who have had this issue denies drug use, denies supplement use denies excessive exercise- reports this was the first time he lifted weights, lifted 30 pounds with his right arm, thought it was 10 pounds. Review of Systems Constitutional: Reports no additional constitutional complaints Denies dizziness Cardiovascular: Denies chest pain, Denies leg edema and Denies dyspnea Respiratory: Denies cough and Denies dyspnea Gastrointestinal: Denies abdominal pain, Denies constipation, Denies diarrhea, Denies nausea and Denies vomiting Genitourinary: Denies hematuria, Denies oliguria, Denies dysuria and Denies flank pain Musculoskeletal: Denies back pain, Reports arthralgias (right elbow pain, upper arm/muscle pain) and Denies muscle cramps Skin/Breast: Denies rash Denies dizziness and Denies focal weakness PMFSH Past Medical History Medical History Mild intermittent asthma Social History Social History Household Members: Family Housing: Apartment Do you presently have visiting nurse or other home services: No Patient Tobacco Use Status: Never used Tobacco Smoked in Last 30 Days: No Use of substances other than those prescribed or required for medical reasons: No Currently Displaying Signs/Symptoms of Drug Intoxication Withdrawal: No Have you been hit, kicked, punched, or otherwise hurt by someone within the past year? If so, by whom?: No Do you feel safe in your current relationship?: No Current Relationship Is there a partner from a previous relationship who is making you feel unsafe now?: No Are you made to feel afraid or neglected: No Advance Directives: No Advance Directives Information Provided: Yes Do you have a plan to hurt others: No Plan Nutrition Risks: No Nutritional Risk service: No Meds Allergies Allergy/AdvReac Type Severity Reaction Status Date / Time seafood Allergy Intermediate Hives Verified 12/06/24 12:31 carrot Allergy Unknown Verified 12/07/24 12:44 green michaels Allergy Unknown Verified 12/07/24 12:45 SEAFOOD Allergy Unknown HIVES Uncoded 09/18/24 14:47 Active Medications: Current Medications Acetaminophen (Acetaminophen 325 Mg Tablet) 650 mg PO Q6H PRN PRN Reason: Pain, Mild 1-3,fever,headache Albuterol Sulfate (Albuterol Sulfate 90 Mcg 8 Gm Inhaler) 2 - 4 puff INHALE Q4H PRN PRN Reason: Shortness Of Breath Or Wheezing Calcium Carbonate (Calcium Carbonate 750 Mg Tab.Chew) 750 mg PO Q4H PRN PRN Reason: Heartburn Ceftriaxone Sodium (Ceftriaxone Sodium 1 Gm Vial) 1 gm IVPUSH Q24H [facility] Last Admin: 12/07/24 17:51 Dose: 1 gm Doxycycline Hyclate 100 mg/ (Sodium Chloride) 250 mls @ 166.67 mls/hr IV Q12H [facility] Last Infusion: 12/08/24 08:01 Dose: Infused Lactated Ringer's (Lr) 1,000 mls @ 200 mls/hr IVCONT .Q5H [facility] Last Admin: 12/08/24 08:05 Dose: 200 mls/hr Magnesium Hydroxide (Milk Of Magnesia 30 Ml Oral.Susp) 30 ml PO DAILY PRN PRN Reason: Constipation Melatonin (Melatonin 3 Mg Tablet) 6 mg PO BEDTIME PRN PRN Reason: Insomnia Sodium Chloride (0.9 % Sodium Chloride Flush 3 Ml Syringe) 3 ml IVFLUSH QSHIFT [facility] Last Admin: 12/08/24 08:10 Dose: 3 ml Home Medications ?Medication ?Instructions ?Recorded ?Confirmed ?Last Taken ?Type albuterol sulfate 90 mcg/actuation 2 - 4 puff inhalation Q4H PRN 12/06/24 12/06/24 Unknown History aerosol inhaler (Ventolin HFA) Shortness Of Breath Or Wheezing cetirizine 10 mg tablet (Zyrtec) 10 mg PO DAILY PRN Allergy Symptoms 12/06/24 12/06/24 Unknown History epinephrine 0.3 mg/0.3 mL 0.3 ml IM DIRECTED PRN Allergic 12/06/24 12/06/24 Unknown History injection, auto-injector Reaction Physical Exam Vital Signs: Last Vital Signs Temp 97.7 F 12/08/24 07:11 Pulse 72 12/08/24 07:11 Resp 16 12/08/24 07:11 BP 117/57 L 12/08/24 07:11 Pulse Ox 98 12/08/24 07:11 O2 Del Method Room Air 12/08/24 07:11 BMI result Body Mass Index 23.9 Const General: no acute distress, alert and awake Resp Effort & Inspection: normal respiratory effort and able to speak in complete sentences Auscultation: clear to auscultation bilaterally Cardio Rate: regular rate Rhythm: regular rhythm Heart sounds: S1 normal heart sound present and S2 normal heart sound present GI Palpation (GI): Soft to palpation and nontender General: Yes no CVA tenderness Back/Spine/Pelvis Back: no CVA tenderness Skin Rashes: no rashes Extrem General: No edema and No pedal edema Results Lab Results 12/07/24 06:38 12/08/24 05:37 Lab results: Chemistry 12/06/24 12/07/24 12/08/24 14:28 06:38 05:37 Sodium 140 143 142 Potassium 4.3 4.0 4.1 Carbon Dioxide 31 H 29 26 BUN 14 11 8 L Creatinine 0.64 0.65 0.61 Calcium 9.2 9.5 8.7 D Hematology 12/06/24 12/07/24 14:28 06:38 WBC 10.3 10.0 Hgb 17.4 16.3 Plt Count 247 231 Urinalysis 12/06/24 16:20 Urine Color Yellow Urine Appearance Clear Urine pH 6.5 Ur Specific Chrisney 1.015 Urine Protein Negative Urine Glucose (UA) Negative Urine Ketones Negative Urine Blood Negative Urine Nitrite Negative Ur Leukocyte Esterase Negative Assessment and Plan (1) Rhabdomyolysis: Qualifiers: Encounter type: initial encounter Rhabdomyolysis type: traumatic Q ualified Code(s): T79.6XXA - Traumatic ischemia of muscle, initial encounter Status: Acute Plan Rhabdomyolysis, cause unclear will check urine drug screen recommend continuing LR at 200mL/hr as ordered --- recommend monitoring/measuring urine output, target is 150mL/hr or greater for adequate hydration recommend ID consult to investigate infectious causes of rhabdo will check viral respiratory panel Discussed with Dr Platt. Procedures Date of Service Date of Service: 12/08/24
--- NOTE | 2024-12-08 09:02 | HO.PM.IMPN ---
Subjective Subjective Date of Service: 12/08/24 Interval History: f/u on rhabdomylosis, cellulitis of the right arm swelling and redness of the arm is better, he has more ROM, normal coloaration and no signs of compartmental syndrome, unfortunately CPK has gone up from 5K to 7K Physical Exam Vital Signs: Vital Signs: Last Vital Signs Temp 97.7 F 12/08/24 07:11 Pulse 72 12/08/24 07:11 Resp 16 12/08/24 07:11 BP 117/57 L 12/08/24 07:11 Pulse Ox 98 12/08/24 07:11 O2 Del Method Room Air 12/08/24 07:11 BMI result Body Mass Index 23.9 Const: Other: General: AO X 3, no acute distress Resp: CTA bilateral CVS: S1,S2,RRR GI: +BS, NT, no distention Skin: has good pulses in the arms Neuro: motor grossly intact Psych: appropriate affect Objective Data Active Medications Acetaminophen (Acetaminophen 325 Mg Tablet) 650 mg PO Q6H PRN PRN Reason: Pain, Mild 1-3,fever,headache Albuterol Sulfate (Albuterol Sulfate 90 Mcg 8 Gm Inhaler) 2 - 4 puff INHALE Q4H PRN PRN Reason: Shortness Of Breath Or Wheezing Calcium Carbonate (Calcium Carbonate 750 Mg Tab.Chew) 750 mg PO Q4H PRN PRN Reason: Heartburn Ceftriaxone Sodium (Ceftriaxone Sodium 1 Gm Vial) 1 gm IVPUSH Q24H [facility] Last Admin: 12/07/24 17:51 Dose: 1 gm Documented By: CHRISSIE Doxycycline Hyclate 100 mg/ (Sodium Chloride) 250 mls @ 166.67 mls/hr IV Q12H [facility] Last Infusion: 12/08/24 08:01 Dose: Infused Documented By: TIMA Lactated Ringer's (Lr) 1,000 mls @ 200 mls/hr IVCONT .Q5H [facility] Last Admin: 12/08/24 08:05 Dose: 200 mls/hr Documented By: TIMA Magnesium Hydroxide (Milk Of Magnesia 30 Ml Oral.Susp) 30 ml PO DAILY PRN PRN Reason: Constipation Melatonin (Melatonin 3 Mg Tablet) 6 mg PO BEDTIME PRN PRN Reason: Insomnia Sodium Chloride (0.9 % Sodium Chloride Flush 3 Ml Syringe) 3 ml IVFLUSH QSHIFT [facility] Last Admin: 12/08/24 08:10 Dose: 3 ml Documented By: TIMA Labs 12/07/24 06:38 12/08/24 05:37 Labs: Laboratory Results - last 24 hr 12/06/24 12/08/24 14:28 05:37 Anion Gap 15 Estim Creat Clear Calc 191.5 Estimated GFR > 60 Random Glucose 123 H Calcium 8.7 D Total Creatine Kinase 7079 H A.phagocytophil DNA PCR NOT DETECTED Babesia microti DNA PCR NOT DETECTED Borrelia sp DNA (PCR) NOT DETECTED Lyme Screen IgG & IgM <0.90 Borrelia miyamotoi (PCR) NOT DETECTED E.chaffeensis DNA (PCR) NOT DETECTED Tick-borne Disease PCR SEE NOTE Microbiology Microbiology Results: Microbiology 12/06/24 18:31 Blood Culture - Preliminary Blood - Venous No growth after 24 hours. 12/06/24 18:31 Blood Culture - Preliminary Blood - Venous No growth after 24 hours. Assessment and Plan (1) Cellulitis: Status: Acute (2) Rhabdomyolysis: Status: Acute Plan 19 y/o male with right arm swelling, cellulitis following weight lift, has mild rhabdomylosis. Right arm cellulitis appears to be improving with less redness noted and less defined lines of demarcation. Patient report improving pain since yesterday. No acute kidney injury noted. Cellulitis right arm--nearly all resolved IV Ceftriaxone + Doxy, D3 Monitor for compartmental syndrome, presently none Rhabdomylosis, cpk trending up 12/06- 2382, 12/06- 2451, 12/07- 5269, 12/08 7079 IVF and continue monitor cpk renal consult dvt prophylaxis: low risk full code plan discussed with pt Quality Stroke Does the patient have a stroke diagnosis?: No VTE Prior VTE?: No VTE Risk Level:: Medical - low VTE Device Contraindication: Treatment Not Indicated VTE Drug Contraindication: Treatment Not Indicated
[2024-12-08 10:03] LABS: Hematocrit 46.4 % (42.0-52.0); Hemoglobin 16.2 g/dl (14.0-18.0); Mean Corpuscular HGB Conc 34.9 g/dl (31.0-36.0); Mean Corpuscular Hemoglobin 30.8 pg (27.0-33.0); Mean Corpuscular Volume 88.2 fL (80.0-98.0); Mean Platelet Volume 8.6 fL (9.4-12.4); Platelet Count 216 X10*3/uL (160-400); Red Blood Count 5.26 X10*6/uL (4.60-5.80); Red Cell Distribution Width 13.4 % (11.0-16.0); White Blood Count 7.7 X10*3/uL (4.8-10.8)
[2024-12-08 11:03] LABS: Amphetamine Screen Urine Not Detected (Not Detect); Barbiturates, Urine Not Detected (Not Detect); Benzodiazepines Screen Urine Not Detected (Not Detect); Buprenorphine Scr Not Detected (Not Detect); Cannabinoid Screen Urine Not Detected (Not Detect); Cocaine Screen Urine Not Detected (Not Detect); Fentanyl, urine Not Detected (Not Detect); Methadone Screen, Urine Not Detected (Not Detect); Opiate Screen Urine Not Detected (Not Detect); Oxycodone Screen Urine Not Detected (Not Detect); Phencyclidine Screen Urine Not Detected (Not Detect)
--- NOTE | 2024-12-08 12:57 | MHC.CM.PN ---
PT NOT YET MEDICALLY CLEAR, STILL REQUIRING IV ABX, IVF AND AWAITING A RENAL CONSULT DCP: HOME NO SERVICES VIA PRIVATE TRANSPORT
--- NOTE | 2024-12-08 12:58 | MHC.CM.PN ---
PT NOT YET MEDICALLY CLEARED, STILL RECEIVING TREATMENT FOR RHABDO AND CELLULITIS DCP: HOME NO SERVICES VIA PRIVATE TRANSPORT
[2024-12-08 13:34] LABS: Adenovirus PCR Not Detected (Not Detect.); Bordetella parapertussis PCR Not Detected (Not Detect.); Bordetella pertussis PCR Not Detected (Not Detect.); Chlamydia pneumoniae PCR Not Detected (Not Detect.); Coronavirus 229E PCR Not Detected (Not Detect.); Coronavirus HKU1 PCR Not Detected (Not Detect.); Coronavirus NL63 PCR Not Detected (Not Detect.); Coronavirus OC43 PCR Not Detected (Not Detect.); Human metapneumovirus PCR Not Detected (Not Detect.); Influenza A PCR Not Detected (Not Detect.); Influenza B PCR Not Detected (Not Detect.); Mycoplasma pneumoniae PCR Not Detected (Not Detect.); Parainfluenza 1 PCR Not Detected (Not Detect.); Parainfluenza 2 PCR Not Detected (Not Detect.); Parainfluenza 3 PCR Not Detected (Not Detect.); Parainfluenza 4 PCR Not Detected (Not Detect.); RSV PCR Not Detected (Not Detect.); Rhino/Enterovirus PCR Not Detected (Not Detect.)
[2024-12-08 14:11] LABS: Influenza A H1 PCR Not Detected (Not Detect.); Influenza A H1-2009 PCR Not Detected (Not Detect.); Influenza A H3 PCR Not Detected (Not Detect.); SARS-CoV-2 PCR Not Detected (Not Detect.)
[2024-12-08 15:14] VITALS: BP 126/58; PULSE 79; RESP 16; TEMP 36.7; O2SAT 99
--- NOTE | 2024-12-08 16:32 | P.CNID_ITS ---
History of Present Illness Data of Consult Service Date: 12/08/24 Requesting physician: Faizan Ye Primary Care Provider: None Physician HPI Reason for consult: right arm pain He presents with right arm pain and reported redness on flexor aspect of arm. He has no fever or chills or leukocytosis. He has elevated CK level to 7,000. Review of Systems 2 Review of Systems: Yes all other systems are reviewed and are negative PMFSH Past Medical History Medical History Mild intermittent asthma Family History Family history: reviewed and not pertinent Social History Social History Household Members: Family Housing: Apartment Do you presently have visiting nurse or other home services: No Patient Tobacco Use Status: Never used Tobacco Smoked in Last 30 Days: No Use of substances other than those prescribed or required for medical reasons: No Currently Displaying Signs/Symptoms of Drug Intoxication Withdrawal: No Have you been hit, kicked, punched, or otherwise hurt by someone within the past year? If so, by whom?: No Do you feel safe in your current relationship?: No Current Relationship Is there a partner from a previous relationship who is making you feel unsafe now?: No Are you made to feel afraid or neglected: No Advance Directives: No Advance Directives Information Provided: Yes Do you have a plan to hurt others: No Plan Nutrition Risks: No Nutritional Risk service: No Meds Allergies Allergy/AdvReac Type Severity Reaction Status Date / Time seafood Allergy Intermediate Hives Verified 12/06/24 12:31 carrot Allergy Unknown Verified 12/07/24 12:44 green michaels Allergy Unknown Verified 12/07/24 12:45 SEAFOOD Allergy Unknown HIVES Uncoded 09/18/24 14:47 Active Medications: Current Medications Acetaminophen (Acetaminophen 325 Mg Tablet) 650 mg PO Q6H PRN PRN Reason: Pain, Mild 1-3,fever,headache Albuterol Sulfate (Albuterol Sulfate 90 Mcg 8 Gm Inhaler) 2 - 4 puff INHALE Q4H PRN PRN Reason: Shortness Of Breath Or Wheezing Calcium Carbonate (Calcium Carbonate 750 Mg Tab.Chew) 750 mg PO Q4H PRN PRN Reason: Heartburn Ceftriaxone Sodium (Ceftriaxone Sodium 1 Gm Vial) 1 gm IVPUSH Q24H [facility] Last Admin: 12/07/24 17:51 Dose: 1 gm Doxycycline Hyclate 100 mg/ (Sodium Chloride) 250 mls @ 166.67 mls/hr IV Q12H [facility] Last Infusion: 12/08/24 08:01 Dose: Infused Lactated Ringer's (Lr) 1,000 mls @ 200 mls/hr IVCONT .Q5H [facility] Last Admin: 12/08/24 13:14 Dose: 200 mls/hr Magnesium Hydroxide (Milk Of Magnesia 30 Ml Oral.Susp) 30 ml PO DAILY PRN PRN Reason: Constipation Melatonin (Melatonin 3 Mg Tablet) 6 mg PO BEDTIME PRN PRN Reason: Insomnia Sodium Chloride (0.9 % Sodium Chloride Flush 3 Ml Syringe) 3 ml IVFLUSH QSHIFT [facility] Last Admin: 12/08/24 15:37 Dose: Not Given Home Medications ?Medication ?Instructions ?Recorded ?Confirmed ?Last Taken ?Type albuterol sulfate 90 mcg/actuation 2 - 4 puff inhalation Q4H PRN 12/06/24 12/06/24 Unknown History aerosol inhaler (Ventolin HFA) Shortness Of Breath Or Wheezing cetirizine 10 mg tablet (Zyrtec) 10 mg PO DAILY PRN Allergy Symptoms 12/06/24 12/06/24 Unknown History epinephrine 0.3 mg/0.3 mL 0.3 ml IM DIRECTED PRN Allergic 12/06/24 12/06/24 Unknown History injection, auto-injector Reaction Physical Exam 2 Vital Signs: Vital Signs: Last Vital Signs Temp 98.1 F 12/08/24 15:14 Pulse 79 12/08/24 15:14 Resp 16 12/08/24 15:14 BP 126/58 L 12/08/24 15:14 Pulse Ox 99 12/08/24 15:14 O2 Del Method Room Air 12/08/24 15:14 BMI result Body Mass Index 23.9 Const: General: cooperative HEENT: Head: Yes normal to inspection Face and sinus: Yes normal facial exam Mouth: Normal oral and palatal mucosa present Teeth and gingiva: d entition normal Eyes: General: appearance normal, both eyes and all related structures P upils: Equal, round and reactive pupils present Resp: Effort & Inspection: normal respiratory effort Cardio: Rate: regular rate Rhythm: regular rhythm GI: Palpation (GI): Soft to palpation and nontender : General: Yes no CVA tenderness Back/Spine/Pelvis: Back: no CVA tenderness Skin: General skin exam: no rashes or lesions noted Neuro: General: moves all extremities Cranial nerves: Yes Equal, round and reactive pupils present Extrem: Other: mild swelling with no real redness but some pain flexor area upper arm Psych: Appearance: grossly normal Results Labs 12/08/24 09:41 12/08/24 05:37 Labs: Short CBC 12/08/24 Range/Units 09:41 WBC 7.7 (4.8-10.8) X10*3/uL Hgb 16.2 (14.0-18.0) g/dl Hct 46.4 (42.0-52.0) % Plt Count 216 (160-400) X10*3/uL BMP 12/08/24 05:37 Sodium 142 Potassium 4.1 Chloride 105 Carbon Dioxide 26 BUN 8 L Creatinine 0.61 Calcium 8.7 D Cardiac Enzymes 12/08/24 Range/Units 05:37 Total Creatine Kinase 7079 H (38-174) U/L Microbiology Microbiology Results: Microbiology 12/06/24 18:31 Blood - Venous Blood Culture - Preliminary No growth after 24 hours. 12/06/24 18:31 Blood - Venous Blood Culture - Preliminary No growth after 24 hours. Assessment and Plan (1) Cellulitis: Qualifiers: Laterality: right Site of cellulitis: extremity Site of cellulitis of extremity: upper extremity Qualified Code(s): L03.113 - Cellulitis of right upper limb Status: Acute (2) Rhabdomyolysis: Qualifiers: Encounter type: initial encounter Rhabdomyolysis type: traumatic Q ualified Code(s): T79.6XXA - Traumatic ischemia of muscle, initial encounter Status: Acute Plan Area is resolving but still elevated CK and no signs of compartment syndrome Surgery follow if still swollen and painful tomorrow and CK rising. No bacteremia Continue Doxycycline and Ceftriaxone until improving per above and then po Ceftin 500 mg bid and Doxycycline 100 mg bid for a week
[2024-12-08] MEDS: cefTRIAXone sodium 1 GM VIAL IVPUSH (18:04)
[2024-12-08 19:10] VITALS: BP 140/87; PULSE 69; RESP 18; TEMP 37; O2SAT 98
[2024-12-09] MEDS: Lactated Ringers 1,000 ML 200 ML IVCONT ×4 (01:10→17:03)
[2024-12-09 03:05] VITALS: BP 120/62; PULSE 70; RESP 20; TEMP 36.5; O2SAT 98
[2024-12-09] MEDS: Doxycycline Hyclate 100 MG in 0.9 % Sodium Chloride 250 ML 166.67 MG IV ×2 (06:01→17:59)
[2024-12-09 07:27] VITALS: BP 114/53; PULSE 61; RESP 18; TEMP 36.4; O2SAT 98
--- NOTE | 2024-12-09 10:00 | P.PNIM_ITS ---
Subjective Subjective Date of Service: 12/09/24 Interval History: f/u on rhabdomylosis, cellulitis of the right arm swelling and redness of the arm is better, he has full ROM, normal coloaration and no signs of compartmental syndrome, unfortunately CPK has gone down slightly Physical Exam 2 Vital Signs: Vital Signs: Last Vital Signs Temp 97.6 F 12/09/24 07:27 Pulse 61 12/09/24 07:27 Resp 18 12/09/24 07:27 BP 114/53 L 12/09/24 07:27 Pulse Ox 98 12/09/24 07:27 O2 Del Method Room Air 12/09/24 07:27 BMI result Body Mass Index 23.9 Const: Other: General: AO X 3, no acute distress Resp: CTA bilateral CVS: S1,S2,RRR GI: +BS, NT, no distention Skin: has good pulses in the arms Neuro: motor grossly intact Psych: appropriate affect Objective Data Active Medications Acetaminophen (Acetaminophen 325 Mg Tablet) 650 mg PO Q6H PRN PRN Reason: Pain, Mild 1-3,fever,headache Albuterol Sulfate (Albuterol Sulfate 90 Mcg 8 Gm Inhaler) 2 - 4 puff INHALE Q4H PRN PRN Reason: Shortness Of Breath Or Wheezing Calcium Carbonate (Calcium Carbonate 750 Mg Tab.Chew) 750 mg PO Q4H PRN PRN Reason: Heartburn Ceftriaxone Sodium (Ceftriaxone Sodium 1 Gm Vial) 1 gm IVPUSH Q24H [facility] Last Admin: 12/08/24 18:04 Dose: 1 gm Documented By: OTTO Doxycycline Hyclate 100 mg/ (Sodium Chloride) 250 mls @ 166.67 mls/hr IV Q12H [facility] Last Infusion: 12/09/24 07:42 Dose: Infused Documented By: CLARA Lactated Ringer's (Lr) 1,000 mls @ 200 mls/hr IVCONT .Q5H [facility] Last Admin: 12/09/24 06:01 Dose: 200 mls/hr Documented By: CESAR Magnesium Hydroxide (Milk Of Magnesia 30 Ml Oral.Susp) 30 ml PO DAILY PRN PRN Reason: Constipation Melatonin (Melatonin 3 Mg Tablet) 6 mg PO BEDTIME PRN PRN Reason: Insomnia Sodium Chloride (0.9 % Sodium Chloride Flush 3 Ml Syringe) 3 ml IVFLUSH QSHIFT [facility] Last Admin: 12/09/24 07:35 Dose: Not Given Documented By: CLARA Non-Admin Reason: IV Running Labs 12/08/24 09:41 12/08/24 05:37 Labs: Laboratory Results - last 24 hr 12/06/24 12/08/24 12/08/24 14:28 09:41 10:25 MCV 88.2 MCH 30.8 MCHC 34.9 RDW 13.4 Plt Count 216 MPV 8.6 L Absolute Nucleated RBC 0.000 Nucleated RBC % (auto) 0.0 Total Creatine Kinase Urine Opiates Screen Ur Buprenorphine Scrn Ur Oxycodone Screen Urine Methadone Screen Urine Fentanyl Screen Ur Barbiturates Screen Ur Phencyclidine Scrn Ur Amphetamines Screen U Benzodiazepines Scrn Urine Cocaine Screen U Marijuana (THC) Screen Respiratory Panel Lucas See Note Adenovirus (Rapid PCR) Not Detected B.pert (TEM-PCR) Not Detected B.parapertussis DNA PCR Not Detected Lyme Progressive Test TNP C. pneumoniae DNA (PCR) Not Detected Coronavirus OC43 (PCR) Not Detected Coronavirus HKU1 (PCR) Not Detected Coronavirus 229E (PCR) Not Detected Coronavirus NL63 (PCR) Not Detected Human Metapneumovir PCR Not Detected Influenza A (RT-PCR) Not Detected Influenza A (H1) PCR Not Detected Influ A (H1/09) PCR Not Detected Influenza A (H3) PCR Not Detected Influenza B (RT-PCR) Not Detected M. pneumoniae (PCR) Not Detected Parainfluenza 1 (PCR) Not Detected Parainfluenza 2 (PCR) Not Detected Parainfluenza 3 (PCR) Not Detected Parainfluenza 4 (PCR) Not Detected RSV (PCR) Not Detected Entero/Rhino (PCR) Not Detected SARS-CoV-2 RNA (RT-PCR) Not Detected 12/08/24 12/09/24 10:37 05:24 MCV MCH MCHC RDW Plt Count MPV Absolute Nucleated RBC Nucleated RBC % (auto) Total Creatine Kinase 7030 H Urine Opiates Screen Not Detected Ur Buprenorphine Scrn Not Detected Ur Oxycodone Screen Not Detected Urine Methadone Screen Not Detected Urine Fentanyl Screen Not Detected Ur Barbiturates Screen Not Detected Ur Phencyclidine Scrn Not Detected Ur Amphetamines Screen Not Detected U Benzodiazepines Scrn Not Detected Urine Cocaine Screen Not Detected U Marijuana (THC) Screen Not Detected Respiratory Panel Lucas Adenovirus (Rapid PCR) B.pert (TEM-PCR) B.parapertussis DNA PCR Lyme Progressive Test C. pneumoniae DNA (PCR) Coronavirus OC43 (PCR) Coronavirus HKU1 (PCR) Coronavirus 229E (PCR) Coronavirus NL63 (PCR) Human Metapneumovir PCR Influenza A (RT-PCR) Influenza A (H1) PCR Influ A (H1/09) PCR Influenza A (H3) PCR Influenza B (RT-PCR) M. pneumoniae (PCR) Parainfluenza 1 (PCR) Parainfluenza 2 (PCR) Parainfluenza 3 (PCR) Parainfluenza 4 (PCR) RSV (PCR) Entero/Rhino (PCR) SARS-CoV-2 RNA (RT-PCR) Microbiology Microbiology Results: Microbiology 12/06/24 18:31 Blood Culture - Preliminary Blood - Venous No growth after 48 hours. 12/06/24 18:31 Blood Culture - Preliminary Blood - Venous No growth after 48 hours. Assessment and Plan (1) Cellulitis: Status: Acute (2) Rhabdomyolysis: Status: Acute Plan 19 y/o male with right arm swelling, cellulitis following weight lift, has mild rhabdomylosis. Right arm cellulitis appears to be improving with less redness noted and less defined lines of demarcation. Patient report improving pain since yesterday. No acute kidney injury noted. Cellulitis right arm--nearly all resolved IV Ceftriaxone + Doxy, D3 seen by ID, no indication for surgery at this time Monitor for compartmental syndrome, presently none Rhabdomylosis, cpk trending up 12/06- 2382, 12/06- 2451, 12/07- 3969, 12/08 7079, 7030--sems to has plateud IVF and continue monitor cpk renal following dvt prophylaxis: low risk full code plan discussed with pt Quality Stroke Does the patient have a stroke diagnosis?: No VTE Prior VTE?: No VTE Risk Level:: Medical - low VTE Device Contraindication: Treatment Not Indicated VTE Drug Contraindication: Treatment Not Indicated
[2024-12-09 15:23] VITALS: BP 126/64; PULSE 69; RESP 18; TEMP 36.6; O2SAT 92
[2024-12-09] MEDS: cefTRIAXone sodium 1 GM VIAL IVPUSH (17:03)
[2024-12-09 19:37] VITALS: BP 122/64; PULSE 78; RESP 18; TEMP 36.9; O2SAT 98
[2024-12-10] MEDS: Lactated Ringers 1,000 ML 200 ML IVCONT ×2 (00:47→05:31)
[2024-12-10 03:22] VITALS: BP 118/56; PULSE 70; RESP 20; TEMP 36.6; O2SAT 99
[2024-12-10] MEDS: Doxycycline Hyclate 100 MG in 0.9 % Sodium Chloride 250 ML 166.67 MG IV (06:06)
[2024-12-10 06:54] VITALS: BP 135/71; PULSE 83; RESP 16; TEMP 36.6; O2SAT 99
--- NOTE | 2024-12-10 07:15 | HE.PHANOTE ---
IV TO PO CONVERSION DOXYCYCLINE CONVERTED FROM IV TO PO PER P&T
--- NOTE | 2024-12-10 08:48 | P.DS_ITS ---
DS: Providers Provider Date of Service: 12/10/24 Date of admission: 12/06/24 18:16 Date of discharge: 12/10/24 Primary care physician: None Physician Consults: 12/06/24 20:58 Consult to Wound Care Routine Reason for consultation: cellulitis right arm 12/08/24 07:53 Consult to Nephrology Routine Consulting Provider: [facility] Reason for consultation: rhabdomylosis Has provider been notified: No 12/08/24 09:55 Consult to Infectious Diseases Routine Consulting Provider: [facility] Reason for consultation: cellulitis of the right arm, rhabdomylosis Has provider been notified: No DS: Diagnosis Discharge Diagnosis (1) Cellulitis: Status: Acute (2) Rhabdomyolysis: Status: Acute DS: Summary Hospital Course Hospital Course: admission hpi Chief Complaint: Right arm swelling and pain 19 year male with mild intermittent asthma lifted weight for first time yesterday, and today noted swelling and redness in the right arm with pain. Xray show soft tissues swelling, US no dvt. CPK 2382, repeat 2451, the arm has normal color and normal distal pulses. hospital coruse: This youg man presented with right arm swelling and pain following weight lifting and found to have cellulitis in the arm and elevated CPK in , normal renal function. There was no sings of compartmental syndrome. He ws treated with IVF, however his CPK catalino daily as follow 12/06- 2382, 12/06- 2451, 12/07- 5269, 12/08 7079, 12/09 7030 and 3113 today 12/10. His renal function remains normal. As for swelling and and redness of the arm initially with some decrease range of motion, the redness has resolved, has no pain and swelling is also near all gone. He has good pulses in the arm, he has b een treated for presumed cellulitis with Ceftriaxone and Doxycyline and will transition to oral doxycline for a total of 7 days. Time Attestation Discharge Coordination Time (in mins): 35 Quality: Safe Use of Opioids Does Pt have an Active Cancer Diagnosis on the Problem List?: No Quality: Stroke Does the patient have a stroke diagnosis?: No Physical Exam Vital Signs: Vital Signs: Last Vital Signs Temp 98 F 12/10/24 06:54 Pulse 83 12/10/24 06:54 Resp 16 12/10/24 06:54 BP 135/71 12/10/24 06:54 Pulse Ox 99 12/10/24 06:54 O2 Del Method Room Air 12/10/24 06:54 BMI result Body Mass Index 23.9 DS: Data Data Completed and Pending Labs on day of discharge: Preliminary micro results at discharge 12/06/24 18:31 Blood Culture - Preliminary Blood - Venous No growth after 48 hours. 12/06/24 18:31 Blood Culture - Preliminary Blood - Venous No growth after 48 hours. Discharge Plan Discharge Anticipated Discharge Date/Time: 12/10/24 11:13 Patient Disposition: Home, Self-Care Discharge Diagnosis: Rhabdomyolysis, Cellulitis of the right arm Referrals: [facility] [Provider Group] (unilateral rhabdomyolysis) [place] [Physician] - Physician,None [Primary Care Provider] - 1 Week Discharge Medications: New doxycycline monohydrate 100 mg capsule 100 mg PO BID Qty: 6 0RF Rx Instructions: next dose this evening Continued cetirizine [Zyrtec] 10 mg Tablet 10 mg PO DAILY PRN (Reason: Allergy Symptoms) epinephrine 0.3 mg/0.3 mL auto-injector 0.3 ml IM DIRECTED PRN (Reason: Allergic Reaction) albuterol sulfate [Ventolin HFA] 90 mcg/actuation HFA aerosol inhaler 2 - 4 puff INHALATION Q4H PRN (Reason: Shortness Of Breath Or Wheezing) Discharge Orders: Discharge Order (Routine); Ordered 12/10/24 Ordered By: Faizan Ye Diet: Advance to usual diet Activity on Discharge: As tolerated Stand Alone Forms: Patient Portal Discharge page Print Language: Amharic Care Plan Goals: recovery from cellulitis of the arm, rhabdomylosis Health Concerns: rhabdomylosis cellulitis of the right arm Plan of Treatment: Your labs showed elevated muscle enzyme. You were treated with IV fluids Continue oral hydration Take the prescribed antibiotics as directed, complete the entire course and do not miss any doses Elevate your arm when possible and wear the IMELDA wrap for gentle compression If you develop new or worsening symptoms call 911 or come back to the ER for further evaluation. take doxycycline as recommended follow up with your docotor in week, kidney doctor will arange for repeat labs to make sure muscle labs are going down Assessment: see above Patient Instructions: Doxycycline (By mouth), Rhabdomyolysis (ED) Discharge Date/Time: 12/10/24 11:48
[2024-12-10 09:33] LABS: Anion Gap 14 (12-20); Blood Urea Nitrogen 7 mg/dL (9-16); Calcium 9.3 mg/dL (8.4-10.2); Carbon Dioxide 27 mmol/L (22-29); Chloride 105 mmol/L (96-108); Creatinine Clr Calc Pharmacy 208.6; Estimated Glomerular Filt Rate > 60; Glucose Random 104 mg/dL (60-115); Potassium 3.8 mmol/L (3.3-5.1); Sodium 142 mmol/L (135-145)
[2024-12-10 11:45] VITALS: BP 132/74; PULSE 70; RESP 15; TEMP 36.1; O2SAT 99
--- NOTE | 2024-12-10 12:13 | MHC.CM.PN ---
PT WILL DC HOME TODAY, WITH NO SERVICES, VIA PRIVATE TRANSPORT
== END 2024-12-10 11:48 | disposition home or self-care (01) | DRG 383 ==
LOC: HO.ED 18:11 → HO.EDOVER 18:31 → HO.S3 19:18
PROVIDERS: Nurse Practitioner Family; Physician Assistant; Admitting Provider Internal Medicine; Emergency Provider Emergency Medicine; Visit Provider Internal Medicine
DX: L03.113 Cellulitis of right upper limb (principal); M62.82 Rhabdomyolysis; J45.20 Mild intermittent asthma, uncomplicated; X50.0XXA Overexertion from strenuous movement or load, initial encounter
CPT/HCPCS: 36415; 73080; 76882; 80048; 80076; 80307; 81003; 82550; 83605; 83735; 85025; 85027; 85652; 86140; 86617; 86618; 87040; 87468; 87469; 87478; 87484; 87633; 87798; 99285; J0696; J1271; J7120

== ENCOUNTER → 2024-12-06 12:26 | Outpatient (BNV) | payer MEDICAID, SELFPAY | PROVIDERS: Emergency Provider Emergency Medicine; Visit Provider Radiology Diagnostic Radiology | DX: R22.31 Localized swelling, mass and lump, right upper limb (principal); M79.89 Other specified soft tissue disorders | CPT/HCPCS: 73080; 76882 ==

== ENCOUNTER → 2024-12-06 18:16 | Outpatient (BNV) | payer MEDICAID, SELFPAY | PROVIDERS: Admitting Provider Internal Medicine; Emergency Provider Emergency Medicine; Visit Provider Internal Medicine | DX: L03.113 Cellulitis of right upper limb (principal); T79.6XXA Traumatic ischemia of muscle, initial encounter | CPT/HCPCS: 99222 ==

== ENCOUNTER → 2024-12-06 18:16 | Outpatient (BNV) | payer MEDICAID, SELFPAY | PROVIDERS: Admitting Provider Internal Medicine; Emergency Provider Emergency Medicine; Visit Provider Internal Medicine | DX: L03.113 Cellulitis of right upper limb (principal); T79.6XXA Traumatic ischemia of muscle, initial encounter | CPT/HCPCS: 99223; 99232; 99239 ==

== ENCOUNTER → 2024-12-06 18:16 | Outpatient (BNV) | payer MEDICAID, SELFPAY | PROVIDERS: Admitting Provider Internal Medicine; Emergency Provider Emergency Medicine; Visit Provider Nurse Practitioner Family | DX: T79.6XXA Traumatic ischemia of muscle, initial encounter (principal) | CPT/HCPCS: 99232 ==

== ENCOUNTER 2024-12-15 08:49 | Outpatient (AMB) | payer MEDICAID, SELFPAY ==
--- OUTSIDE RECORDS SUMMARY | 2024-12-15 08:52 | XMS_ITS | Encounter Summary ---
Author Organization [employer] Address [address] [place] [address] [address] [place] [address] Care Team Providers Care Manager Of Development Name Role Phone Moni Cervantes MD Primary Care Provider [phone] Reason for Visit * Reason Onset Date Comments Hospital Follow-up 12/12/2024 Encounter Details Date Type Department Care Team ([facility] Contact Info) Description 12/12/2024 Telephone [facility] [address] [place], [place] [phone] Moni Cervantes MD [address] [place], [place] [phone] Hospital Follow-up Social History Tobacco Use Types Packs/Day Years [...] AM EDT documented as of this encounter Miscellaneous Notes * Telephone Encounter - Jason Mcelroy - 12/12/2024 8:42 AM EDT Tc from pt requesting a HDF appt. Hospital: [facility] Date of admission: 12/06/24 Discharge date: 12/10/24 Diagnosed: Rhabdomyolysis Contact pt mom [phone] (estonian) documented in this encounter Plan of Treatment Upcoming Encounters Date Type Department Care Team (Late st Contact Info) Description 12/19/2024 9:15 AM EDT Office Visit [facility] [address] [place] [address] Lois Pantoja DO [address] [place] [address] documented as of this encounter Visit Diagnoses Not on filedocumented in this encounter Additional Health Concerns Assessment Noted Time PHQ-9 Depression Total Score: 0 04/21/20 24 1:45 PM EDT documented as of this encounter Care Teams Manager Of Development Relationship Specialty Start Date End Date Moni Cervantes MD [address] [place] [address] PCP - General Family Medicine 04/12/24 Amina Maradiaga [employer] Archives DirectorSports Attorney 12/23/23 documented as of this encounter
--- NOTE | 2024-12-15 09:10 | MHC.OFFVIS ---
Vital Signs 12/15/24 09:14 Height 5 ft 9 in Weight 161 lb BMI 23.8 Handedness Right Intake Visit Reasons: ER f/u - right arm pain, poss bicep injury Intake Note: Tl is a 19 year old right hand dominant male who presents today with mom for a evaluation of his right arm pain. His pain started on 12/05/24 when he went to the gym for the first time and did many arm work outs. He states his pain is a 5/10 on the pain scale. Patient was given a anti inflammatory at the ED which gave him relief. IMPRESSION: Soft tissue swelling. No osseous abnormality is identified. Allergies seafood Allergy (Intermediate, Verified 12/15/24 09:14) Hives carrot Allergy (Verified 12/15/24 09:14) Unknown green michaels Allergy (Verified 12/15/24 09:14) Unknown SEAFOOD Allergy (Unknown, Uncoded 09/18/24 14:47) HIVES HPI HPI ER f/u - right arm pain, poss bicep injury: Details: Mr. David Arceo his a 19-year-old right-hand dominant male who presents to the office today for follow-up of a right forearm and bicep injury that he sustained on 12/05/2024. He presented to the emergency department on 12/06/2024 reporting that he went to the gym the 1st time yesterday and did many arm exercises. He denies any pop or trauma to the right upper extremity at that time. He did notice later that evening that he started developing some redness in the lower anterior biceps area and progressed the following morning. At that time he was unable to flex or extend his arm. He was ultimately admitted to the medicine service for cellulitis and rhabdomyolysis. He was treated with IV antibiotics and then transitioned to p.o.. He finished his p.o. antibiotics on Wednesday12/13/2024. He has had no return of the redness. His pain has been decreasing. Additionally, on the date of discharge on 12/10/2024 it was reported that the redness had resolved and the pain and swelling was also near resolution. [facility] Medical History Mild intermittent asthma Social History Household Members: Family Housing: Apartment Do you presently have visiting nurse or other home services: No Alcohol intake: never Patient Tobacco Use Status: Never used Tobacco service: No Current occupational status: student Current occupation: right hand dominant Review of Systems Const All systems reviewed & are unremarkable except as noted in HPI and below Physical Exam Extrem Other: Right upper extremity: There is an outline from where the previous redness was present over the anterior aspect of the biceps extending to the antecubital space.. There is no erythema or ecchymosis present at this time. No edema. Patient is able to demonstrate full elbow flexion, extension, pronation and supination. The distal biceps tendon is palpable on exam. No additional tenderness to palpation over the medial or lateral epicondyle or radial head. NVI. Assessment & Plan Assessment & Plan (1) Rhabdomyolysis: Code(s): M62.82 - Rhabdomyolysis Category: Medical Qualifiers: Encounter type: initial encounter Rhabdomyolysis type: traumatic Qualified Code(s): T79.6XXA - Traumatic ischemia of muscle, initial encounter (2) Cellulitis: Code(s): L03.90 - Cellulitis, unspecified Category: Medical Qualifiers: Laterality: right Site of cellulitis: extremity Site of cellulitis of extremity: upper extremity Qualified Code(s): L03.113 - Cellulitis of right upper limb Plan Mr. Daivd Arceo his a 19-year-old right-hand dominant male who presents to the office today for follow-up of a right forearm and bicep injury that he sustained on 12/05/2024. He presented to the emergency department on 12/06/2024 reporting that he went to the gym the 1st time yesterday and did many arm exercises. He denies any pop or trauma to the right upper extremity at that time. He did notice later that evening that he started developing some redness in the lower anterior biceps area and progressed the following morning. At that time he was unable to flex or extend his arm. He was ultimately admitted to the medicine service for cellulitis and rhabdomyolysis. He was treated with IV antibiotics and then transitioned to p.o.. He finished his p.o. antibiotics on Wednesday12/13/2024. He has had no return of the redness. His pain has been decreasing. Additionally, on the date of discharge on 12/10/2024 it was reported that the redness had resolved and the pain and swelling was also near resolution. While in the office today, the biceps tendon is palpable and the patient has erythema and edema has decreased significantly. Due to the negative physical examination further need for additional imaging is deferred at this time. It appears the patient was suffering from rhabdomyolysis. He may follow up PRN, sooner if needed. If he continues to have erythema I would recommend following up with PCP for cellulitis management or presenting back to the emergency department. Ultrasound obtained on 12/06/2024 IMPRESSION: 1. The bicipital tendon, either normal or abnormal, could not be visualized. 2. Subcutaneous edema in the region of swelling over the right bicep. No mass, abnormal lymph nodes, or organized fluid collection identified. 3. If there is concern for bicipital rupture, MRI recommended. X-ray of the right elbow obtained on 12/06/2024 IMPRESSION: Soft tissue swelling. No osseous abnormality is identified. Coding Level of Care Code New Pt Level 3 (75065) Diagnoses Rhabdomyolysis T79.6XXA Encounter type: initial encounter Rhabdomyolysis type: traumatic Cellulitis L03.113 Laterality: right Site of cellulitis: extremity Site of cellulitis of extremity: upper extremity
[2024-12-15 09:14] VITALS: BMI 23.8
== END 2024-12-15 09:30 | disposition home or self-care (01) ==
LOC: HO.HOS 08:49
PROVIDERS: PCP General Practice; Visit Provider Physician Assistant
DX: T79.6XXA Traumatic ischemia of muscle, initial encounter (principal); L03.113 Cellulitis of right upper limb
CPT/HCPCS: 99203

== ENCOUNTER → 2024-12-15 08:49 | Outpatient (BNVA) | payer MEDICAID, SELFPAY | PROVIDERS: PCP General Practice; Visit Provider Physician Assistant | DX: T79.6XXA Traumatic ischemia of muscle, initial encounter (principal); L03.113 Cellulitis of right upper limb | CPT/HCPCS: 99212 ==

== ENCOUNTER 2024-12-20 10:00 | Outpatient (AMB) | payer MEDICAID, SELFPAY ==
--- NOTE | 2024-12-20 10:21 | HO.NEPHOV_ITS ---
Vital Signs 12/20/24 10:23 Height 5 ft 9 in Weight 168 lb 6 oz BMI 24.9 BP 110/80 Blood Pressure Location Rt brachial Position Sitting Pulse 69 Pulse Source Pulse Oximeter Pulse Oximetry (%) 98 Oxygen Delivery Method Room Air Intake Visit Reasons: [facility] Spaghetti Machine Operator Required: No Accompanied by: Mother Allergies seafood Allergy (Intermediate, Verified 12/20/24 10:23) Hives carrot Allergy (Verified 12/20/24 10:23) Unknown green michaels Allergy (Verified 12/20/24 10:23) Unknown SEAFOOD Allergy (Unknown, Uncoded 09/18/24 14:47) HIVES HPI Comments Details: 19 year male with mild intermittent asthma S/P lifting weight for first time noted swelling and redness in the right arm with pain. Xray show soft tissues swelling, US no dvt. CPK 2382, repeat 2451, the arm has normal color and normal distal pulses. He was found to have cellulitis in the arm and elevated CPK in with normal renal function and no sings of compartmental syndrome. He was treated with IVF, however his CPK catalino daily as follow 12/06- 2382, 12/06- 2451, 12/07- 5269, 12/08 7079, 12/09 7030 and subsequently to 3113 on 12/10. His renal function remained normal.He is here for follow up. He feels well and has no complaints [facility] Medical History Mild intermittent asthma Family History Maternal Grandmother Diabetes Maternal Aunt Diabetes Social History Household Members: Family Housing: Apartment Do you presently have visiting nurse or other home services: No Alcohol intake: never Patient Tobacco Use Status: Never used Tobacco service: No Current occupational status: student Current occupation: right hand dominant Review of Systems Const All systems reviewed & are unremarkable except as noted in HPI and below Physical Exam Vital Signs: Last Vital Signs Pulse 69 12/20/24 10:23 BP 110/80 12/20/24 10:23 Pulse Ox 98 12/20/24 10:23 Oxygen Delivery Method Room Air 12/20/24 10:23 BMI result Body Mass Index 24.9 Const General: comfortable and no acute distress Orientation/consciousness: patient oriented x3 HEENT Head: Yes normocephalic Mouth: Normal oral and palatal mucosa present Eyes EOM: EOMs intact bilaterally Neck Neck: Yes supple Resp Auscultation: clear to auscultation bilaterally Cardio Jugular venous distension: no JVD Rate: regular rate GI Palpation (GI): Soft to palpation Auscultation: normal bowel sounds General: Yes no CVA tenderness Back/Spine/Pelvis Back: no CVA tenderness Skin General skin exam: no rashes or lesions noted Neuro General: patient oriented x3 and moves all extremities Extrem General: Yes no pedal edema Results Reviewed Nephrology Results: Hgb 16.2 g/dl (14.0-18.0) 12/08/24 WBC 7.7 X10*3/uL (4.8-10.8) 12/08/24 Plt Count 216 X10*3/uL (160-400) 12/08/24 Sodium 142 mmol/L (135-145) 12/10/24 Potassium 3.8 mmol/L (3.3-5.1) 12/10/24 Chloride 105 mmol/L (96-108) 12/10/24 Carbon Dioxide 27 mmol/L (22-29) 12/10/24 BUN 7 mg/dL (9-16) L 12/10/24 Creatinine 0.56 mg/dL (0.5-1.4) 12/10/24 Calcium 9.3 mg/dL (8.4-10.2) 12/10/24 Urine Protein Negative mg/dL (Neg-Trace) 12/06/24 Assessment & Plan Assessment & Plan (1) Rhabdomyolysis: Code(s): M62.82 - Rhabdomyolysis Category: Medical Qualifiers: Encounter type: initial encounter Rhabdomyolysis type: traumatic Qualified Code(s): T79.6XXA - Traumatic ischemia of muscle, initial encounter Plan Rhabdomyolysis likely due to exercise Toxicology negative; Viral studies negative Renal function normal; Urine output good No clinical signs of myositis/myopathy Blood work today; F/U as needed Orders: Orders CK, Total+Isoenzymes, Serum Today T79.6XXA - Traumatic ischemia of muscle, initial encounter Creatinine Today T79.6XXA - Traumatic ischemia of muscle, initial encounter Electrolytes Today T79.6XXA - Traumatic ischemia of muscle, initial encounter Blood Urea Nitrogen Today T79.6XXA - Traumatic ischemia of muscle, initial encounter Coding Level of Care Code Est Pt Level 4 (94268) Diagnoses Rhabdomyolysis T79.6XXA Encounter type: initial encounter Rhabdomyolysis type: traumatic
[2024-12-20 10:23] VITALS: BP 110/80; PULSE 69; O2SAT 98; BMI 24.9
--- OUTSIDE RECORDS SUMMARY | 2024-12-20 10:36 | XMS_ITS | Encounter Summary ---
Author Organization [employer] Address [address] [place] [address] 7 [place] [address] Care Team Providers Care Tower Director Name Role Phone Moni Cervantes MD Primary Care Provider [phone] Reason for Visit * Reason Onset Date Comments Hospital Follow-up 12/12/2024 Encounter Details Date Type Department Care Team ([facility] Contact Info) Description 12/12/2024 Telephone [facility] [address] [place], [place] [phone] Moni Cervantes MD [address] [place] [address] Hospital Follow-up Social History Tobacco Use Types [...] from pt requesting a HDF appt. Hospital: [facility] Date of admission: 12/06/24 Discharge date: 12/10/24 Diagnosed: Rhabdomyolysis Contact pt mom [phone] (yemeni) documented in this encounter Plan of Treatment Upcoming Encounters Date Type Department Care Team (Late st Contact Info) Description 12/20/2024 2:00 PM EDT Office Visit [facility] [address] [place] [address] Lois Pantoja DO [address] [place] [address] documented as of this encounter Visit Diagnoses Not on filedocumented in this encounter Additional Health Concerns Assessment Noted Time PHQ-9 Depression Total Score: 0 04/21/20 24 1:45 PM EDT documented as of this encounter Care Teams Tower Director Relationship Specialty Start Date End Date Moni Cervantes MD [address] [place] [address] PCP - General Family Medicine 04/12/24 Amina Maradiaga Bar PointerBackside Grinder 12/23/23 documented as of this encounter
== END 2024-12-20 10:30 | disposition home or self-care (01) ==
LOC: HO.HKA 10:01
PROVIDERS: PCP General Practice; Visit Provider Internal Medicine Nephrology
DX: T79.6XXA Traumatic ischemia of muscle, initial encounter (principal)
CPT/HCPCS: 99214

== ENCOUNTER → 2024-12-20 10:00 | Outpatient (BNVA) | payer MEDICAID, SELFPAY | PROVIDERS: PCP General Practice; Visit Provider Internal Medicine Nephrology | DX: T79.6XXA Traumatic ischemia of muscle, initial encounter (principal) | CPT/HCPCS: 36415; 80051; 82552; 82565; 84520; 99212 ==

== ENCOUNTER 2024-12-20 10:33 | Outpatient (REF) | payer MEDICAID, SELFPAY ==
[2024-12-20 12:46] LABS: Anion Gap 12 (12-20); Blood Urea Nitrogen 11 mg/dL (9-16); Carbon Dioxide 31 mmol/L (22-29); Chloride 104 mmol/L (96-108); Estimated Glomerular Filt Rate > 60; Potassium 4.1 mmol/L (3.3-5.1); Sodium 143 mmol/L (135-145)
[2024-12-23 23:44] LABS: CK-BB None Detected (None Detected); CK-MB 0 % (<5); CK-MM 100 % (95-100); Creatine Kinase,Total,Serum 104 U/L (26-366)
== END 2024-12-20 10:34 | disposition home or self-care (01) ==
LOC: HO.10HDL 10:33
PROVIDERS: Visit Provider Internal Medicine Nephrology
DX: Z13.89 Encounter for screening for other disorder (principal)
CPT/HCPCS: 36415; 80051; 82552; 82565; 84520